=== PATIENT | female | born 1980 | race Caucasian/White ===

== ENCOUNTER 2018-08-07 17:56 | Emergency (ER) | payer SELFPAY ==
[2018-08-07] MEDS ORDERED: Acetaminophen 500 MG TAB ONE (18:15)
[2018-08-07] MEDS ORDERED: Lisinopril 20 MG TAB ONE (18:15)
== END 2018-08-07 18:25 | disposition home or self-care (01) ==
LOC: BURERS 17:56
DX: H66.92 Otitis media, unspecified, left ear (principal); I10 Essential (primary) hypertension; J06.9 Acute upper respiratory infection, unspecified; F17.210 Nicotine dependence, cigarettes, uncomplicated
CPT/HCPCS: 99283

== ENCOUNTER 2019-10-23 13:01 | Emergency (ER) | payer MEDICAID, OTHER ==
[2019-10-23] MEDS ORDERED: Ibuprofen 200 MG TAB ONE (14:01)
[2019-10-23] MEDS ORDERED: Ondansetron ODT 4 MG TAB ONE (14:01)
[2019-10-23] MEDS ORDERED: Triple Antibiotic Oint 1 GM Packet ONE (14:04)
--- NOTE | 2019-10-23 17:03 | RAD ---
LEFT LEG TWO VIEWS: Date: 10-23-2019 FINDINGS: No fracture was seen. The tibia and fibula both appear intact. Incidentally noted was a small calcane al spur. IMPRESSION: No acute bony findings. No opaque foreign body seen. POS: HOME
== END 2019-10-23 14:13 | disposition home or self-care (01) ==
LOC: BURERS 13:01
DX: S81.812A Laceration without foreign body, left lower leg, initial encounter (principal); F17.210 Nicotine dependence, cigarettes, uncomplicated; W22.8XXA Striking against or struck by other objects, initial encounter
CPT/HCPCS: 12002; Q0162

== ENCOUNTER 2019-11-02 13:54 | Emergency (ER) | payer OTHER ==
[2019-11-02] MEDS ORDERED: Bacitracin 1 PK ONE (14:20)
== END 2019-11-02 14:27 | disposition home or self-care (01) ==
LOC: BURERS 13:54
DX: S80.12XA Contusion of left lower leg, initial encounter (principal); S81.812D Laceration without foreign body, left lower leg, subsequent encounter; W22.8XXA Striking against or struck by other objects, initial encounter
CPT/HCPCS: 99283

== ENCOUNTER 2019-11-17 13:23 | Emergency (ER) | payer OTHER ==
[2019-11-17] MEDS ORDERED: Morphine 4 MG/ML VIAL ONE ×2 (13:50→15:16)
[2019-11-17] MEDS ORDERED: CEFAZOLIN 1 GM VIAL ONE (13:51)
[2019-11-17] MEDS ORDERED: Lidocaine 4% Cream 5 GM TUBE w/ Tegaderm ONE (14:17)
[2019-11-17] MEDS ORDERED: Bupivacaine 0.5% 10 ML VIAL ONE (14:59)
[2019-11-17] MEDS ORDERED: Lidocaine 1% w/Epinephrine 1:100K 20 ML VIAL ONE (14:59)
--- NOTE | 2019-11-17 17:10 | RAD ---
RIGHT ELBOW FOUR VIEWS: 11/17/19 No fracture or joint effusion was seen. The joint appears normal. IMPRESSION: No acute finding. POS: HOME
--- NOTE | 2019-11-17 17:11 | RAD ---
LEFT KNEE FOUR VIEWS: 11/17/19 No fracture or joint effusion was seen. The joint space appears normal. IMPRESSION: No acute finding. POS: HOME
--- NOTE | 2019-11-17 17:13 | RAD ---
RIGHT ANKLE THREE VIEWS: 11/17/19 No fracture was seen. The articular surfaces are smooth. A small calcaneal spur was noted. IMPRESSION: No acute bony finding. POS: HOME
--- NOTE | 2019-11-17 17:19 | RAD ---
LEFT LEG TWO VIEWS: 11/17/19 Laceration is seen over the anterior part of the leg. There appears to be a small divot in the cortex of the anterior mid-tibial shaft. There is a chance that this is just a shadow casted by the lacerat ion, but when I blow up the image, it appears that there may be actually a seth in the cortex. I homero ot see a through and through fracture at this time. The fibula appears intact. IMPRESSION: Suspicious for small cortical seth from the laceration injury. POS: HOME
== END 2019-11-17 16:33 | disposition short-term general hospital (02) ==
LOC: BURERS 13:23
DX: S01.511A Laceration without foreign body of lip, initial encounter (principal); S81.812A Laceration without foreign body, left lower leg, initial encounter; S90.01XA Contusion of right ankle, initial encounter; S80.02XA Contusion of left knee, initial encounter; I10 Essential (primary) hypertension; F17.210 Nicotine dependence, cigarettes, uncomplicated; V47.5XXA Car driver injured in collision with fixed or stationary object in traffic accident, initial encounter
CPT/HCPCS: 12011; 96365; 96375; 96376; J0690; J2270; J3490